=== PATIENT | male | born 1945 | race Caucasian/White ===

== ENCOUNTER → 2018-05-18 | Outpatient (CLI) | payer MEDICARE, OTHER ==
[2018-05-18 10:06] LABS: ABSOLUTE BASOPHILS # (AUTO) 0.1 10^3/uL (0.0-0.2); ABSOLUTE EOSINOPHILS # (AUTO) 0.6 10^3/uL (0.0-0.6); ABSOLUTE LYMPHOCYTES (AUTO) 2.5 10^3/uL (0.5-4.7); ABSOLUTE MONOCYTES (AUTO) 0.6 10^3/uL (0.1-1.4); BASOPHILS % (AUTO) 0.9 % (0-2); EOSINOPHILS % (AUTO) 7.2 % (0-6); HEMATOCRIT 45.6 % (37.9-51.0); LYMPHOCYTES % (AUTO) 28.2 % (13-45); MEAN CORPUSCULAR HEMOGLOBIN 31.5 pg (27.0-33.4); MEAN CORPUSCULAR HGB CONC 35.2 g/dL (32.0-36.0); MEAN CORPUSCULAR VOLUME 90 fl (80-97); PLATELET COUNT 221 10^3/uL (150-450); RED BLOOD COUNT 5.09 10^6/uL (4.35-5.55); RED CELL DISTRIBUTION WIDTH 12.6 % (11.5-14.0); SEGMENTED NEUTROPHILS % (AUTO) 56.7 % (42-78); TOTAL CELLS COUNTED % (AUTO) 100 %; WHITE BLOOD COUNT 8.8 10^3/uL (4.0-10.5)
[2018-05-18 10:42] LABS: ALANINE AMINOTRANSFERASE 50 U/L (21-72); ALBUMIN 4.5 g/dL (3.5-5.0); ALKALINE PHOSPHATASE 85 U/L (38-126); ANION GAP 13 (5-19); ASPARTATE AMINO TRANSFERASE 45 U/L (17-59); BILIRUBIN,DIRECT 0.2 mg/dL (0.0-0.4); BILIRUBIN,TOTAL 0.9 mg/dL (0.2-1.3); BLOOD UREA NITROGEN 17 mg/dL (7-20); CALCIUM 9.8 mg/dL (8.4-10.2); CARBON DIOXIDE 30 mmol/L (22-30); CHLORIDE 104 mmol/L (98-107); GLUCOSE 123 mg/dL (75-110); POTASSIUM 5.5 mmol/L (3.6-5.0); SODIUM 146.9 mmol/L (137-145); TOTAL PROTEIN 7.9 g/dL (6.3-8.2)
[2018-05-18 11:31] LABS: CHOLESTEROL 141.18 mg/dL (0-200); DIRECT LDL 88 mg/dL (<100); TRIGLYCERIDES 251 mg/dL (<150); VLDL CHOLESTEROL 50.2 mg/dL (10-31)
[2018-05-19 12:37] LABS: CREATININE URINE 96.1 mg/dL (Not Estab.)
[2018-05-20 07:41] LABS: MICROALBUMIN URINE 478.9 ug/mL (Not Estab.)
== END ==
LOC: OD 09:10
PROVIDERS: ATTEND Family Medicine Geriatric Medicine
DX: E11.8 Type 2 diabetes mellitus with unspecified complications (principal); I10 Essential (primary) hypertension; E78.5 Hyperlipidemia, unspecified; Z79.899 Other long term (current) drug therapy
CPT/HCPCS: 36415; 80053; 80061; 82043; 82570; 83036; 84443; 85025

== ENCOUNTER → 2018-06-21 | Outpatient (CLI) | payer MEDICARE, OTHER | LOC: OD 11:44 | PROVIDERS: ATTEND Family Medicine Geriatric Medicine | DX: E87.5 Hyperkalemia (principal) | CPT/HCPCS: 36415; 84132 ==

== ENCOUNTER → 2018-08-01 | Outpatient (CLI) | payer MEDICARE, OTHER ==
[2018-08-01 09:34] LABS: ABSOLUTE BASOPHILS # (AUTO) 0.1 10^3/uL (0.0-0.2); ABSOLUTE EOSINOPHILS # (AUTO) 0.8 10^3/uL (0.0-0.6); ABSOLUTE LYMPHOCYTES (AUTO) 2.7 10^3/uL (0.5-4.7); ABSOLUTE MONOCYTES (AUTO) 0.7 10^3/uL (0.1-1.4); ABSOLUTE NEUT (AUTO) 5.4 10^3/uL (1.7-8.2); BASOPHILS % (AUTO) 0.8 % (0-2); EOSINOPHILS % (AUTO) 8.3 % (0-6); HEMATOCRIT 45.1 % (37.9-51.0); HEMOGLOBIN 15.6 g/dL (13.5-17.0); LYMPHOCYTES % (AUTO) 27.9 % (13-45); MEAN CORPUSCULAR HEMOGLOBIN 31.2 pg (27.0-33.4); MEAN CORPUSCULAR HGB CONC 34.5 g/dL (32.0-36.0); MEAN CORPUSCULAR VOLUME 90 fl (80-97); MONOCYTES % (AUTO) 7.2 % (3-13); PLATELET COUNT 244 10^3/uL (150-450); RED BLOOD COUNT 4.99 10^6/uL (4.35-5.55); SEGMENTED NEUTROPHILS % (AUTO) 55.8 % (42-78); TOTAL CELLS COUNTED % (AUTO) 100 %; WHITE BLOOD COUNT 9.7 10^3/uL (4.0-10.5)
[2018-08-01 09:59] LABS: ALANINE AMINOTRANSFERASE 24 U/L (21-72); ALBUMIN 4.7 g/dL (3.5-5.0); ALKALINE PHOSPHATASE 75 U/L (38-126); ANION GAP 12 (5-19); ASPARTATE AMINO TRANSFERASE 30 U/L (17-59); BILIRUBIN,DIRECT 0.3 mg/dL (0.0-0.4); BILIRUBIN,TOTAL 0.6 mg/dL (0.2-1.3); BLOOD UREA NITROGEN 23 mg/dL (7-20); CARBON DIOXIDE 29 mmol/L (22-30); CHLORIDE 107 mmol/L (98-107); CHOLESTEROL 130.32 mg/dL (0-200); GLUCOSE 87 mg/dL (75-110); POTASSIUM 4.9 mmol/L (3.6-5.0); SODIUM 147.6 mmol/L (137-145); TOTAL PROTEIN 7.9 g/dL (6.3-8.2); TRIGLYCERIDES 189 mg/dL (<150)
[2018-08-01 10:11] LABS: DIRECT LDL 81 mg/dL (<100)
[2018-08-01 10:14] LABS: VLDL CHOLESTEROL 37.8 mg/dL (10-31)
[2018-08-02 10:38] LABS: CREATININE URINE 229.2 mg/dL (Not Estab.)
[2018-08-02 10:59] LABS: MICROALBUMIN URINE 584.3 ug/mL (Not Estab.)
== END ==
LOC: OD 08:13
PROVIDERS: ATTEND Family Medicine Geriatric Medicine
DX: E11.8 Type 2 diabetes mellitus with unspecified complications (principal); I10 Essential (primary) hypertension; E78.5 Hyperlipidemia, unspecified; Z79.899 Other long term (current) drug therapy
CPT/HCPCS: 36415; 80053; 80061; 82043; 82570; 83036; 84443; 85025

== ENCOUNTER 2018-08-15 06:59 | Day surgery (SDC) | payer MEDICARE, OTHER ==
--- NOTE | 2018-08-07 13:13 | EKG REPORT ---
SEVERITY:- OTHERWISE NORMAL ECG - SINUS BRADYCARDIA : Confirmed by: Kory Funez MD 07-Aug-2018 13:13:22
[~2018-08-15 06:59] MED LIST: LACTATED RINGERS 1000 ML IV PRN; LIDOCAINE 0.5% INJ-PF (5 MG/ML) 50 ML SDV SUBCUT PRN
[2018-08-15] MEDS ORDERED: BUPIVACAINE INJ/PF LIPOSOME/PF 266 MG/20 ML SDV ONE (07:35)
[2018-08-15] MEDS ORDERED: BUPIVACAINE HCL 0.25 % INJ/PF (2.5 MG/1 ML) 30 ML VIAL ONE (07:35)
[2018-08-15] MEDS ORDERED: SUCCINYLCHOLINE CHLORIDE INJ 200 MG/10 ML VIAL ONE (08:04)
[2018-08-15] MEDS ORDERED: ROCURONIUM BROMIDE INJ 50 MG/5 ML VIAL IV ONE (08:04)
[2018-08-15] MEDS ORDERED: GLYCOPYRROLATE 1 MG/5 ML SYRINGE ONE (08:04)
[2018-08-15] MEDS ORDERED: KETOROLAC TROMETHAMINE 60 MG/2 ML SDV ONE (08:04)
[2018-08-15] MEDS ORDERED: NEOSTIGMINE METHYLSULFATE 10 MG/10 ML VIAL ONE (08:04)
[2018-08-15] MEDS ORDERED: DEXAMETHASONE SOD PHOSPHATE INJ 4 MG/1 ML VIAL ONE (08:04)
[2018-08-15] MEDS ORDERED: ONDANSETRON HCL INJ/PF 4 MG/2 ML SDV ONE (08:04)
[2018-08-15] MEDS ORDERED: ACETAMINOPHEN 1,000 MG/100 ML RTUPB IV ONE (08:18)
[2018-08-15] MEDS ORDERED: HYDROMORPHONE HCL INJ/PF 2 MG/ML AMPULE ONE (08:18)
[2018-08-15] MEDS ORDERED: FENTANYL CITRATE INJ/PF 100 MCG/2 ML AMPUL ONE (08:18)
[2018-08-15] MEDS ORDERED: MIDAZOLAM 2 MG/2 ML INJ ONE (08:18)
[2018-08-15] MEDS ORDERED: PROPOFOL INJ 200 MG/20 ML VIAL IV ONE (08:18)
[2018-08-15] MEDS ORDERED: CEFAZOLIN INJ 1 GM VIAL ONE (10:27)
[2018-08-15] MEDS ORDERED: ONDANSETRON HCL INJ/PF 4 MG/2 ML SDV IV PRN (11:13)
[2018-08-15] MEDS ORDERED: MEPERIDINE HCL/PF INJ 25 MG/1 ML DISP.SYRIN IV PRN (11:13)
[2018-08-15] MEDS ORDERED: DIPHENHYDRAMINE HCL 50 MG/ML VIAL IV PRN (11:13)
[2018-08-15] MEDS ORDERED: FENTANYL CITRATE INJ/PF 100 MCG/2 ML AMPUL IV PRN ×3 (11:13)
[2018-08-15] MEDS ORDERED: MORPHINE SULFATE 10 MG/ML INJ IV PRN ×2 (11:13→14:17)
[2018-08-15] MEDS ORDERED: GENTAMICIN SULFATE INJ 80 MG/2 ML VIAL ONE (11:46)
[2018-08-15] MEDS ORDERED: DEXTROSE 50%-WATER 25 GM/50 ML DISP.SYRIN IV PRN ×4 (14:17→14:34)
[2018-08-15] MEDS ORDERED: DEXTROSE 40% GEL 15 GM TUBE PO PRN ×4 (14:17→14:34)
[2018-08-15] MEDS ORDERED: GLUCAGON,HUMAN RECOMB 1 MG INJ SUBCUT PRN (14:17)
--- NOTE | 2018-08-15 14:27 | Operative Report ---
Operative Report DATE OF SURGERY: 08/15/18 PREOPERATIVE DIAGNOSIS: Large incarcerated left inguinal hernia POSTOPERATIVE DIAGNOSIS: Same with incarcerated sigmoid colon left inguinal hernia sac OPERATION: 1. Exploration left inguinal canal. 2. Reduction of large left i nguinal hernia including incarcerated sigmoid colon. 3. Repair of left inguinal floor with large polypropylene mesh. 4. Drainage of subcutaneous space SURGEON: ALEKSEY COTO 1ST ARBORIST REPRESENTATIVE: ANTHONY HARDEN ANESTHESIA: GA TISSUE REMOVED OR ALTERED: Portions of hernia sac; dark tissue and fatty tissue. COMPLICATIONS: None ESTIMATED BLOOD LOSS: 100 cc INTRAOPERATIVE FINDINGS: See below PROCEDURE: Patient was taken in the preop holding her to the main operating where general anesthesia was induced. A Falk catheter was inserted with the return of clear yellow urine. The genitalia were clipped of hair, then prepped and draped in sterile fashion Surgical plan and surgical timeout was subsequently conducted. The findings were significant for a large chronically incarcerated left inguinal hernia. It was felt the hernia contained a portion of the sigmoid colon. Multiple efforts were made to reduce the hernia after the patient was under general anesthesia but were unsuccessful. Markings were made on the skin for a standard left inguinal herniorrhaphy incision. Skin was anesthetized with quarter percent Marcaine. Approximately 6 cm incision was made superior inguinal region, subcutaneous tissue and Susan's fascia divided. Initially we got down to the external inguinal ring, and mobilized tissue in a circumferential fashion all the way around the contents going down into the left hemiscrotum. Multiple attempts were made to reduce the hernia from here but were unsuccessful. Therefore the hernia sac was opened right in mid field, and underlying viscera appreciated. The contents consisted of the sigmoid colon. Over the next 45 minutes we worked vigorously trying to completely reduce the moist colon from the left hemiscrotum. This was extremely difficult due to dense adhesions. Most of the dissection was conducted using blunt dissection. I did not believe a counterincision at the bottom of the scrotum would be appropriate. Nor did I see any indication to transect the colon. Once the colon was mobilized, photos were taken. There were 3 serosal tears approximately 1-1/2 cm long which were closed with 2 and 3-0 Vicryl suture. There was no violation of the bowel lumen. The distinction between the colon, mesocolon, and the peritoneal lining was very obscure. This took a fair amount of tedious visual and manual analysis to separate again the posterior peritoneal lining from the colon . Once this was achieved, the sigmoid colon was visualized carefully and felt to be suitable for reduction into the peritoneal cavity. Unfortunately the patient's true hernia defect was actually quite small in relation to the eviscerated colon. Therefore the hernia defect was extended laterally under direct visualization, opening up the external oblique aponeurosis as well as the conjoined tendon. After much tedious manipulation of the colon in a circumferential fashion, we were able to completely reduce it into the free peritoneal space. Again this was made difficult by the narrow edematous mesentery and the posterior fixation of the sigmoid colon to the peritoneal lining. At no point did we believe the colon was at risk for ischemia, or perforation and therefore we felt the colon could be returned safely to the peritoneal cavity. Bleeding was primarily from the blunt dissection. Now we spent a fair amount of time cleaning up the exposed floor the inguinal canal, debriding redundant portions of the hernia sac, and sparing the spermatic vessels including the vas deferens. We surrounded the retained structures with a Clyde drain, and carefully opened the external oblique aponeurosis laterally a few more centimeters to expose the floor the inguinal canal. We brought onto the field a S Prolene hernia system initially but elected not to use this as a prosthetic because of inadequate condition of the retroperitoneum from the eviscerated redundant peritoneum. We therefore brought on to the field a Appear Here 3D polypropylene mesh trimmed to the appropriate configuration, positioned it into place, cut an upside down U in the mesh in the inferior edge and then the mesh was sewed to the conjoined tendon superior and laterally lacunar ligament medially, and the Poupart's ligament inferiorly. Suture used was 0 PDS interrupted and running. The mass did require folding laterally and superiorly to accommodate the defect. Once the mesh was installed, we were satisfied with the configuration and reconstruction of the floor of the canal. We were also satisfied with the new internal ring diameter. At this point sponge and needle counts are correct. We did ensure that the left testicle was sitting in the left hemiscrotum. Bleeding was negligible. The external oblique aponeurosis was closed along the direction of its fibers to create the new external ring. We did place a drain, large Cyrus, in the inferior subcutaneous tissue, drain secured to the skin with 2-0 Prolene sutures, 20 cc of full-strength Exparel injected into the subcutaneous tissue, and wound approximated bi. Patient tolerated the procedure well, extubated, and taken to recovery room in stable condition.
[2018-08-15] MEDS ORDERED: EPHEDRINE SULFATE INJ 50 MG/1 ML AMPULE ONE (14:29)
[2018-08-15] MEDS ORDERED: GLUCAGON,HUMAN RECOMB 1 MG INJ IM PRN (14:34)
[2018-08-15] MEDS ORDERED: IPRATROPIUM/ALBUTEROL 0.5-2.5 MG/3 ML AMPUL NEB ONE (15:09)
--- NOTE | 2018-08-15 15:32 | RADIOLOGY REPORT (SQ) ---
EXAM DESCRIPTION: CHEST SINGLE VIEW COMPLETED DATE/TIME: 08/15/2018 3:19 pm REASON FOR STUDY: LOW SPO2 WITH WHEEZING COMPARISON: None. EXAM PARAMETERS: NUMBER OF VIEWS: One view. TECHNIQUE: Single frontal radiographic view of the chest acquired. RADIATION DOSE: NA LIMITATIONS: None. FINDINGS: LUNGS AND PLEURA: Low lung volumes. Streaky left perihilar and retrocardiac opacities. N o significant pleural effusion. No pneumothorax. MEDIASTINUM AND HILAR STRUCTURES: No masses. Contour normal. HEART AND VASCULAR STRUCTURES: Heart normal in size. Normal vasculature. BONES: No acute findings. HARDWARE: None in the chest. OTHER: No other significant finding. IMPRESSION: Low lung volumes with left perihilar and retrocardiac streaky opacities possibly atelect asis or infection. TECHNICAL DOCUMENTATION: JOB ID: [id number] [employer]- All Rights Reserved Reading location - IP/workstation name: [email or web address]
[2018-08-15] MEDS: NORMAL SALINE 1000 ML 1,000 ML IV PRN ×2 (17:02→23:49)
[2018-08-15] MEDS ORDERED: ACETAMINOPHEN INJ/PF 1000 MG/100 ML SDV IV SCH (18:00)
[2018-08-15] MEDS: INSULIN REG, HUMAN 100 UNIT/ML 3 ML VIAL (PYX) SUBCUT SCH (18:22)
[2018-08-15] MEDS: ACETAMINOPHEN 1,000 MG/100 ML RTUPB IV SCH ×2 (18:33→23:50)
[2018-08-15] MEDS ORDERED: KETOROLAC TROMETHAMINE INJ/PF 30 MG/1 ML SDV IV PRN (20:30)
[2018-08-16] MEDS: INSULIN REG, HUMAN 100 UNIT/ML 3 ML VIAL (PYX) SUBCUT SCH ×4 (00:53→17:40)
[2018-08-16 05:18] LABS: ABSOLUTE NEUT (AUTO) 9.1 10^3/uL (1.7-8.2); BASOPHILS % (AUTO) 0.1 % (0-2); EOSINOPHILS % (AUTO) 0.1 % (0-6); HEMATOCRIT 38.9 % (37.9-51.0); HEMOGLOBIN 13.5 g/dL (13.5-17.0); LYMPHOCYTES % (AUTO) 8.8 % (13-45); MEAN CORPUSCULAR HGB CONC 34.7 g/dL (32.0-36.0); MEAN CORPUSCULAR VOLUME 89 fl (80-97); MONOCYTES % (AUTO) 9.2 % (3-13); PLATELET COUNT 211 10^3/uL (150-450); RED BLOOD COUNT 4.36 10^6/uL (4.35-5.55); RED CELL DISTRIBUTION WIDTH 12.8 % (11.5-14.0); SEGMENTED NEUTROPHILS % (AUTO) 81.8 % (42-78); TOTAL CELLS COUNTED % (AUTO) 100 %; WHITE BLOOD COUNT 11.1 10^3/uL (4.0-10.5)
[2018-08-16] MEDS: ACETAMINOPHEN 1,000 MG/100 ML RTUPB IV SCH ×4 (05:28→23:51)
[2018-08-16] MEDS: NORMAL SALINE 1000 ML 1,000 ML IV PRN ×3 (06:11→19:37)
[2018-08-16] MEDS: METFORMIN HCL 500 MG TABLET PO SCH ×2 (07:41→15:14)
[2018-08-16] MEDS: METOPROLOL SUCCINATE 50 MG TAB.SR.24H PO SCH (10:47)
[2018-08-16] MEDS: AMLODIPINE BESYLATE 10 MG TABLET PO SCH (10:48)
[2018-08-16] MEDS: BENAZEPRIL HCL 20 MG TABLET PO SCH (10:48)
[2018-08-16] MEDS: GLIPIZIDE 10 MG TABLET PO SCH (10:51)
--- NOTE | 2018-08-16 12:10 | PDOC PROGRESS REPORT ---
Subjective Progress Note for:: 08/16/18 Subjective:: Patient has some abdominal pain; required assistance getting out of bed; has not voided since Falk catheter removed Reason For Visit: LEFT INCARCERATED INGUINAL HERNIA REPAIR Physical Exam Vital Signs: Temp Pulse Resp BP Pulse Ox 98.3 F 72 18 178/65 H 95 08/16/18 08:04 08/16/18 08:04 08/16/18 08:04 08/16/18 08:04 08/16/18 09:11 Pulse Oximeter Continuous Start: 08/15/18 18:47 Freq: RTQ4 Status: Active Protocol: Document 08/16/18 09:11 [facility] [place] (Rec: 08/16/18 09:11 [facility] [id number]) Pulse Oximetry Assessment Oxygen Saturation (92-100) 95 Oxygen Delivery Method Room Air Fraction of Inspired Oxygen (FIO2) 21 Equipment Usage Equipment in Use Continuous SpO2 Machine # [id number] Intake & Output 08/15/18 08/16/18 08/17/18 06:59 06:59 06:59 Intake Total 5225 Output Total 1405 Balance 3820 Weight 117 kg General appearance: PRESENT: no acute distress Respiratory exam: PRESENT: other - Respirations noisy GI/Abdominal exam: PRESENT: soft - Soft, no peritoneal signs no rigidity; some left lower quadrant tenderness, other - Dressing removed; some bruising to inferior skin flap laterally. Drain removed; dressing replaced; left hemiscrotum with testicle palpated; affected amount of swelling and tenderness; no expanding hematoma. Results Laboratory Results: 08/16/18 04:35 08/16/18 04:35 WBC 11.1 H RBC 4.36 Hgb 13.5 Hct 38.9 MCV 89 MCH 31.0 MCHC 34.7 RDW 12.8 Plt Count 211 Seg Neutrophils % 81.8 H Lymphocytes % 8.8 L Monocytes % 9.2 Eosinophils % 0.1 Basophils % 0.1 Absolute Neutrophils 9.1 H Absolute Lymphocytes 1.0 Absolute Monocytes 1.0 Absolute Eosinophils 0.0 Absolute Basophils 0.0 Impressions: Chest X-Ray 08/15/18 00:00 IMPRESSION: Low lung volumes with left perihilar and retrocardiac streaky opacities possibly atelectasis or infection. Assessment & Plan - Diagnosis (1) Left inguinal hernia Is this a current diagnosis for this admission?: Yes Plan: Impression: Uneventful postoperative day 1 course following large left inguinal herniorrhaphy with placement of sigmoid colon aaron to peritoneal cavity. Patient voiding with Falk catheter out. Pain adequately managed. Blood sugars controlled. Accommodations: 1. Emphasized importance of pulmonary toilet up and ambulating 2. We will get discharge planning involved to assess support for activities of daily living. 3. We will likely advance diet this afternoon if patient tolerates clear liquids today. 4. Anticipate discharge home in 18-24 hours. (2) Morbid obesity Is this a current diagnosis for this admission?: Yes (3) Diabetes mellitus Qualifiers: Diabetes mellitus type: type 2 Is this a current diagnosis for this admission?: Yes
[2018-08-16] MEDS ORDERED: SIMVASTATIN 40 MG TABLET PO SCH (18:00)
[2018-08-17] MEDS: INSULIN REG, HUMAN 100 UNIT/ML 3 ML VIAL (PYX) SUBCUT SCH ×3 (00:30→11:56)
[2018-08-17] MEDS: NORMAL SALINE 1000 ML 1,000 ML IV PRN (04:06)
[2018-08-17] MEDS: ACETAMINOPHEN 1,000 MG/100 ML RTUPB IV SCH ×2 (05:15→12:24)
[2018-08-17] MEDS ORDERED: FUROSEMIDE INJ/PF 20 MG/2 ML SDV ONE (07:58)
[2018-08-17] MEDS: METFORMIN HCL 500 MG TABLET PO SCH ×2 (08:03→17:31)
[2018-08-17] MEDS ORDERED: IPRATROPIUM/ALBUTEROL 0.5-2.5 MG/3 ML AMPUL NEB PRN (08:04)
--- NOTE | 2018-08-17 08:06 | PDOC PROGRESS REPORT ---
Subjective Progress Note for:: 08/17/18 Subjective:: Patient tolerating regular diet, ambulating with minimal assistance. Pain is controlled. Reason For Visit: LEFT INCARCERATED INGUINAL HERNIA REPAIR Physical Exam Vital Signs: Temp Pulse Resp BP Pulse Ox 99.3 F 83 16 156/72 H 96 08/17/18 00:21 08/17/18 00:21 08/16/18 20:30 08/17/18 00:21 08/17/18 04:49 Pulse Oximeter Continuous Start: 08/15/18 18:47 Freq: RTQ4 Status: Active Protocol: Document 08/17/18 04:49 [facility] (Rec: 08/17/18 04:49 [facility] [email or web address]) Pulse Oximetry Assessment Oxygen Saturation (92-100) 96 Oxygen Delivery Method Room Air Fraction of Inspired Oxygen (FIO2) 21 Equipment Usage Equipment in Use Continuous SpO2 Machine # [id number] Intake & Output 08/16/18 08/17/18 08/18/18 06:59 06:59 06:59 Intake Total 5225 5118 Output Total 1405 1150 Balance 3820 3968 Weight 117 kg 116.2 kg General appearance: PRESENT: mild distress - Patient with shortness of breath; audible wheezing GI/Abdominal exam: PRESENT: other - Abdominal binder; operative dressing dry; moderate amount of edema and fluid in the left hemiscrotum Results Laboratory Results: 08/16/18 04:35 Impressions: Chest X-Ray 08/15/18 00:00 IMPRESSION: Low lung volumes with left perihilar and retrocardiac streaky opacities possibly atelectasis or infection. Assessment & Plan - Diagnosis (1) Left inguinal hernia Is this a current diagnosis for this admission?: Yes Plan: Impression: Postoperative day 2 status post open left inguinal herniorrhaphy with reduction of incarcerated sigmoid colon. Likely mild volume overload. Blood sugars controlled. Recommendations: 1. Hep-Lock IV; Lasix 10 mg IV now; DuoNeb. 2. We will give patient stool softener, and Dulcolax by mouth 3. We will reevaluate patient this afternoon, likely discharge home. (2) Morbid obesity Is this a current diagnosis for this admission?: Yes (3) Diabetes mellitus Qualifiers: Diabetes mellitus type: type 2 Is this a current diagnosis for this admission?: Yes
[2018-08-17] MEDS ORDERED: BISACODYL 5 MG TABEC PO ONE (09:30)
[2018-08-17] MEDS: BENAZEPRIL HCL 20 MG TABLET PO SCH (09:39)
[2018-08-17] MEDS: GLIPIZIDE 10 MG TABLET PO SCH (09:40)
[2018-08-17] MEDS: AMLODIPINE BESYLATE 10 MG TABLET PO SCH (09:40)
[2018-08-17] MEDS: METOPROLOL SUCCINATE 50 MG TAB.SR.24H PO SCH (09:41)
[2018-08-17] MEDS ORDERED: DOCUSATE SODIUM 100 MG CAPSULE PO SCH (10:00)
[2018-08-17 14:36] VITALS: BP 157/71
--- NOTE | 2018-08-22 20:33 | DISCHARGE SUMMARY E ---
Discharge Summary NAME: CAMILA DEJESUS JR : 1945 AGE: 73Y ADMITTED: 08/15/2018 DISCHARGED: 08/17/2018 SUMMARY OF HOSPITALIZATION: The patient is a 73-year-old white male with a history of incarcerated large left inguinal hernia, who was brought *------* surgery for repair. Please see his initial history and physical document for complete records. The patient tolerated the procedure well and was admitted to the floor for observation. He voided the following day after the Falk catheter was removed. He was started on a stool softener. He was in mild volume overload and the patient did respond to Lasix diuresis. His pain was adequately managed postoperatively. He did have Exparel in the institution. His drain was removed on the first postoperative day. By the second postoperative day he was felt to have received maximum benefit from the hospitalization and was discharged home. FINAL DIAGNOSIS: Incarcerated left inguinal hernia with the majority of sigmoid colon in the left hemiscrotum, status post operative repair through the left inguinal herniorrhaphy site by Dr. Jaramillo. DISPOSITION: The patient will be discharged home in the care of his family, monitor his blood sugars, have home health check on him, and follow up with Dr. Jaramillo at [facility] in 1 week. DICTATING PHYSICIAN: ALEKSEY JARAMILLO M.D. [id number] 2018 DANIELITO#: [id number] ID: [id number] JOB#: [id number] ACCT: [id number] cc:ALEKSEY JARAMILLO M.D. >
== END 2018-08-17 16:45 | disposition home health service (06) ==
LOC: OROUT 06:59 → EDSTATUS 09:00 → 4N 16:23 → OROUT 08-17 16:45
PROVIDERS: ATTEND Surgery
DX: K40.30 Unilateral inguinal hernia, with obstruction, without gangrene, not specified as recurrent (principal); M10.9 Gout, unspecified; I10 Essential (primary) hypertension; E78.5 Hyperlipidemia, unspecified; E11.9 Type 2 diabetes mellitus without complications; Z79.899 Other long term (current) drug therapy; Z79.82 Long term (current) use of aspirin; Z79.84 Long term (current) use of oral hypoglycemic drugs; Z79.4 Long term (current) use of insulin
CPT/HCPCS: 93005; 36415; 82962; 85025; 71045; 94799; 93010; 94762 ×3; 49507; C1781 ×2; J2250; A9270 ×15; J0690; J3490 ×3; J1100; J1885; J1940; J1580; J1170; J0330; J2405; J7030 ×3; J2704; J0131 ×3; C9290; 830; J1815; J3010; J7620

== ENCOUNTER → 2018-09-20 | Outpatient (CLI) | payer MEDICARE, OTHER ==
--- NOTE | 2018-09-20 16:20 | RADIOLOGY REPORT (SQ) ---
EXAM DESCRIPTION: WRIST RIGHT 3 VIEWS; HAND RIGHT 3 VIEWS COMPLETED DATE/TIME: 09/20/2018 4:06 pm REASON FOR STUDY: PAIN IN RIGHT WRIST; PAIN IN RIGHT HAND M79.641 PAIN IN RIGHT HAND M25.531 PAIN IN RIGHT WRIST COMPARISON: None. NUMBER OF VIEWS: Six views. TECHNIQUE: AP, lateral, and oblique radiographic images acquired of the right wrist and right hand. LIMITATIONS: None. FINDINGS: MINERALIZATION: Normal. BONES: No acute fracture or dislocation. No worrisome bone lesions. Normal alignment. SOFT TISSUES: No soft tissue swelling. No foreign body. 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 IMPRESSION: NO RADIOGRAPHIC EVIDENCE OF ACUTE INJURY. TECHNICAL DOCUMENTATION: JOB ID: [id number] [employer]- All Rights Reserved Reading location - IP/workstation name: [email or web address]
--- NOTE | 2018-09-20 16:20 | RADIOLOGY REPORT (SQ) ---
EXAM DESCRIPTION: WRIST RIGHT 3 VIEWS; HAND RIGHT 3 VIEWS COMPLETED DATE/TIME: 09/20/2018 4:06 pm REASON FOR STUDY: PAIN IN RIGHT WRIST; PAIN IN RIGHT HAND M79.641 PAIN IN RIGHT HAND M25.531 PAIN IN RIGHT WRIST COMPARISON: None. NUMBER OF VIEWS: Six views. TECHNIQUE: AP, lateral, and oblique radiographic images acquired of the right wrist and right hand. LIMITATIONS: None. FINDINGS: MINERALIZATION: Normal. BONES: No acute fracture or dislocation. No worrisome bone lesions. Normal alignment. SOFT TISSUES: No soft tissue swelling. No foreign body. 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 IMPRESSION: NO RADIOGRAPHIC EVIDENCE OF ACUTE INJURY. TECHNICAL DOCUMENTATION: JOB ID: [id number] [employer]- All Rights Reserved Reading location - IP/workstation name: [email or web address]
== END ==
LOC: OD 15:52
PROVIDERS: ATTEND Family Medicine Geriatric Medicine
DX: M79.641 Pain in right hand (principal); M25.531 Pain in right wrist

== ENCOUNTER → 2018-12-24 | Outpatient (CLI) | payer MEDICARE, OTHER ==
[2018-12-24 11:23] LABS: ALANINE AMINOTRANSFERASE 30 U/L (21-72); CHOLESTEROL 145.07 mg/dL (0-200); TRIGLYCERIDES 224 mg/dL (<150)
[2018-12-24 11:38] LABS: DIRECT LDL 82 mg/dL (<100)
[2018-12-24 11:43] LABS: VLDL CHOLESTEROL 44.8 mg/dL (10-31)
[2018-12-25 12:37] LABS: CREATININE URINE 123.8 mg/dL (Not Estab.); MICROALBUMIN URINE 388.4 ug/mL (Not Estab.)
== END ==
LOC: OD 10:17
PROVIDERS: ATTEND Family Medicine Geriatric Medicine
DX: E11.9 Type 2 diabetes mellitus without complications (principal); I10 Essential (primary) hypertension; E78.5 Hyperlipidemia, unspecified; Z79.899 Other long term (current) drug therapy
CPT/HCPCS: 36415; 80061; 82043; 82570; 83036; 84460

== ENCOUNTER → 2019-06-27 | Outpatient (CLI) | payer MEDICARE, OTHER ==
[2019-06-27 14:31] LABS: CHOLESTEROL 151.63 mg/dL (0-200); TRIGLYCERIDES 351 mg/dL (<150)
[2019-06-27 14:52] LABS: DIRECT LDL 89 mg/dL (<100)
[2019-06-27 14:59] LABS: VLDL CHOLESTEROL 70.2 mg/dL (10-31)
[2019-06-29 13:37] LABS: CREATININE URINE 344.2 mg/dL (Not Estab.)
[2019-06-30 15:29] LABS: MICROALBUMIN URINE 2060.7 ug/mL (Not Estab.)
== END ==
LOC: OD 12:59
PROVIDERS: ATTEND Family Medicine Geriatric Medicine
DX: E11.21 Type 2 diabetes mellitus with diabetic nephropathy (principal); I10 Essential (primary) hypertension; E78.5 Hyperlipidemia, unspecified; Z79.899 Other long term (current) drug therapy
CPT/HCPCS: 36415; 80061; 82043; 82570; 83036; 84460

== ENCOUNTER → 2019-07-30 | Outpatient (CLI) | payer MEDICARE, OTHER ==
--- NOTE | 2019-07-30 14:11 | RADIOLOGY REPORT (SQ) ---
EXAM DESCRIPTION: U/S RETROPERITON (RENAL/AORTA) COMPLETED DATE/TIME: 07/30/2019 1:48 pm REASON FOR STUDY: I10 ESSENTIAL (PRIMARY) HYPERTENSION I10 ESSENTIAL (PRIMARY) HYPERTENSION R80.9 PROTEINURIA, UNSPECIFIED COMPARISON: None. TECHNIQUE: Dynamic and static grayscale images acquired of the kidneys and bladder and recorded on P ACS. Additional selected color Doppler and spectral images recorded. LIMITATIONS: None. FINDINGS: RIGHT KIDNEY: Normal size. Normal echogenicity. No solid or suspicious masses. No hydronep hrosis. No calcifications. LEFT KIDNEY: Normal size. Normal echogenicity. 2.7 cm cortical cyst. No solid or suspicious masses . No hydronephrosis. No calcifications. BLADDER: No masses. OTHER FINDINGS: No other significant finding. IMPRESSION: CORTICAL CYST IN THE LEFT KIDNEY. OTHERWISE NORMAL RENAL AND BLADDER ULTRASOUND. TECHNICAL DOCUMENTATION: JOB ID: [id number] 2010 [employer]- All Rights Reserved Reading location - IP/workstation name: [email or web address]
[2019-07-30 14:15] LABS: APPEARANCE,URINE CLEAR; BILIRUBIN,URINE NEGATIVE (NEGATIVE); COLOR,URINE YELLOW; GLUCOSE, URINE NEGATIVE (NEGATIVE); KETONES,URINE NEGATIVE (NEGATIVE); LEUKOCYTE ESTERASE,URINE NEGATIVE (NEGATIVE); NITRITE,URINE NEGATIVE (NEGATIVE); PROTEIN,URINE 100 mg/dL (NEGATIVE); URINE SPECIFIC GRAVITY 1.014; UROBILINOGEN,URINE NEGATIVE mg/dL (<2.0)
[2019-07-30 14:32] LABS: ANION GAP 11 (5-19); BLOOD UREA NITROGEN 17 mg/dL (7-20); CALCIUM 9.6 mg/dL (8.4-10.2); CARBON DIOXIDE 28 mmol/L (22-30); CHLORIDE 99 mmol/L (98-107); GLUCOSE 135 mg/dL (75-110); POTASSIUM 4.2 mmol/L (3.6-5.0)
[2019-07-31 08:37] LABS: COMPLEMENT C3 142 mg/dL (82-167); COMPLEMENT C4 25 mg/dL (14-44)
[2019-07-31 10:36] LABS: CREATININE URINE 124.9 mg/dL (Not Estab.)
[2019-07-31 10:36] LABS: HEPATITIS C VIRUS AB <0.1 s/co ratio (0.0-0.9)
[2019-07-31 10:37] LABS: GLOMERULAR BASMENT MEMBRANE AB 3 units (0-20); HEPATITS B SURFACE ANTIGEN Negative (Negative)
[2019-08-01 14:37] LABS: A/G RATIO. 1.3 (0.7-1.7); ALPHA-1-GLOBULIN 0.2 g/dL (0.0-0.4); GAMMA GLOBULINS 1.2 g/dL (0.4-1.8); IMMUNOGLOBULIN A 220 mg/dL (61-437); IMMUNOGLOBULIN G 1301 mg/dL (700-1600); IMMUNOGLOBULIN M 130 mg/dL (15-143); MONOCLONAL-SPIKE Not Observed g/dL (Not Observ); PROTEIN TOTAL SERUM 7.2 g/dL (6.0-8.5)
[2019-08-01 16:37] LABS: CYTOPLASMIC (C-ANCA) <1:20 titer (Neg:<1:20)
[2019-08-02 07:07] LABS: ATYPICAL PANCA <1:20 titer (Neg:<1:20)
== END ==
LOC: RAD 13:08
PROVIDERS: ATTEND Internal Medicine Nephrology
DX: R80.9 Proteinuria, unspecified (principal); E11.9 Type 2 diabetes mellitus without complications; I10 Essential (primary) hypertension; Z11.59 Encounter for screening for other viral diseases; N28.1 Cyst of kidney, acquired
CPT/HCPCS: 36415; 76770; 80048; 81001; 82043; 82570; 83036; 85652; 86021; 86038; 86160; 86256; 86317; 86320; 86803; 86804; 87340

== ENCOUNTER → 2020-02-04 | Outpatient (CLI) | payer MEDICARE, OTHER ==
[2020-02-04 14:00] LABS: ANION GAP 11 (5-19); BLOOD UREA NITROGEN 26 mg/dL (7-20); CALCIUM 10.2 mg/dL (8.4-10.2); CARBON DIOXIDE 29 mmol/L (22-30); CHLORIDE 99 mmol/L (98-107); CHOLESTEROL 121.11 mg/dL (0-200); GLUCOSE 120 mg/dL (75-110); POTASSIUM 4.7 mmol/L (3.6-5.0); TRIGLYCERIDES 231 mg/dL (<150)
[2020-02-04 14:10] LABS: DIRECT LDL 62 mg/dL (<100)
[2020-02-04 14:15] LABS: VLDL CHOLESTEROL 46.2 mg/dL (10-31)
[2020-02-05 13:37] LABS: CREATININE URINE 171.2 mg/dL (Not Estab.); MICROALBUMIN URINE 88.3 ug/mL (Not Estab.)
== END ==
LOC: OD 11:50
PROVIDERS: ATTEND Family Medicine Geriatric Medicine
DX: E11.21 Type 2 diabetes mellitus with diabetic nephropathy (principal); E78.5 Hyperlipidemia, unspecified; I10 Essential (primary) hypertension; Z79.899 Other long term (current) drug therapy
CPT/HCPCS: 36415; 80048; 80061; 82043; 82570; 83036; 84460

== ENCOUNTER → 2020-04-06 | Outpatient (CLI) | payer MEDICARE, OTHER ==
[2020-04-06 13:33] LABS: TRIGLYCERIDES 263 mg/dL (<150)
[2020-04-06 13:44] LABS: DIRECT LDL 62 mg/dL (<100)
[2020-04-06 13:46] LABS: VLDL CHOLESTEROL 52.6 mg/dL (10-31)
== END ==
LOC: OD 11:54
PROVIDERS: ATTEND Family Medicine Geriatric Medicine
DX: Z79.899 Other long term (current) drug therapy (principal)
CPT/HCPCS: 36415; 80061; 84460

== ENCOUNTER → 2020-04-20 | Outpatient (CLI) | payer MEDICARE, OTHER ==
[2020-04-20 14:20] LABS: ANION GAP 16 (5-19); BLOOD UREA NITROGEN 24 mg/dL (7-20); CALCIUM 10.6 mg/dL (8.4-10.2); CARBON DIOXIDE 24 mmol/L (22-30); CHLORIDE 101 mmol/L (98-107); GLUCOSE 120 mg/dL (75-110); POTASSIUM 4.6 mmol/L (3.6-5.0)
== END ==
LOC: OD 12:58
PROVIDERS: ATTEND Internal Medicine Nephrology
DX: N18.2 Chronic kidney disease, stage 2 (mild) (principal)
CPT/HCPCS: 36415; 80048

== ENCOUNTER → 2020-07-03 | Outpatient (CLI) | payer MEDICARE, OTHER ==
[2020-07-03 13:11] LABS: ANION GAP 8 (5-19); BLOOD UREA NITROGEN 24 mg/dL (7-20); CALCIUM 10.1 mg/dL (8.4-10.2); CARBON DIOXIDE 33 mmol/L (22-30); CHLORIDE 99 mmol/L (98-107); CHOLESTEROL 147.52 mg/dL (0-200); GLUCOSE 127 mg/dL (75-110); POTASSIUM 4.5 mmol/L (3.6-5.0); TRIGLYCERIDES 285 mg/dL (<150)
[2020-07-03 13:22] LABS: DIRECT LDL 74 mg/dL (<100)
[2020-07-04 14:37] LABS: CREATININE URINE 92.9 mg/dL (Not Estab.); MICROALBUMIN URINE 96.1 ug/mL (Not Estab.)
== END ==
LOC: OD 12:03
PROVIDERS: ATTEND Family Medicine Geriatric Medicine
DX: E03.9 Hypothyroidism, unspecified (principal); I10 Essential (primary) hypertension; E78.5 Hyperlipidemia, unspecified; E66.3 Overweight; Z79.899 Other long term (current) drug therapy
CPT/HCPCS: 36415; 80048; 80061; 82043; 82570; 83036; 84460